=== PATIENT | male | born 1965 | race Caucasian/White ===

== ENCOUNTER 2018-12-11 10:39 | Outpatient (REF) | payer OTHER, SELFPAY ==
[2018-12-13 10:59] LABS: Campylobacter PCR SEE COMMENTS; Salmonella PCR SEE COMMENTS; Shiga Toxin PCR SEE COMMENTS; Shigella/Enteroinvasive Ecoli SEE COMMENTS
== END 2018-12-11 10:59 ==
LOC: NCHCN 10:39
PROVIDERS: PCP Family Medicine; Visit Provider Registered Nurse
DX: R19.7 Diarrhea, unspecified (principal)
CPT/HCPCS: 87505; 83630; 87324

== ENCOUNTER 2019-11-05 08:02 | Outpatient (REF) | payer OTHER, SELFPAY ==
[2019-11-05 22:20] LABS: Anion Gap 10.4 mmol/L (3-11); BUN 14 mg/dL (7-18); CO2 25.6 mmol/L (21.0-32.0); CREATININE 1.06 mg/dL (0.70-1.30); Calcium 9.2 mg/dL (8.5-10.1); Calculated LDL 109 mg/dL (<100); Chloride 103 mmol/L (98-107); Cholesterol 196 mg/dL (<200); Glucose 106 mg/dL (74-106); HDL Cholesterol 38 mg/dL (40-60); Potassium 4.5 mmol/L (3.5-5.1); Sodium 139 mmol/L (136-145); Triglyceride 246 mg/dL (<150)
== END 2019-11-05 08:22 ==
LOC: NCHCN 08:02
PROVIDERS: PCP Family Medicine; Visit Provider Internal Medicine
DX: I10 Essential (primary) hypertension (principal); E88.81 Metabolic syndrome and other insulin resistance; E78.5 Hyperlipidemia, unspecified
CPT/HCPCS: 80048; 80061

== ENCOUNTER 2020-05-04 08:19 | Outpatient (REF) | payer OTHER, SELFPAY ==
[2020-05-04 21:17] LABS: Calculated LDL 109 mg/dL (<100); Cholesterol 206 mg/dL (<200); Glucose 94 mg/dL (74-106); HDL Cholesterol 36 mg/dL (40-60); Triglyceride 307 mg/dL (<150)
[2020-05-04 21:28] LABS: Hemoglobin A1C 5.9 % (3.8-5.6)
== END 2020-05-04 08:39 ==
LOC: NCHCN 08:19
PROVIDERS: PCP Family Medicine; Visit Provider Internal Medicine
DX: R73.01 Impaired fasting glucose (principal); I10 Essential (primary) hypertension; E78.5 Hyperlipidemia, unspecified
CPT/HCPCS: 80061; 82947; 83036

== ENCOUNTER 2020-11-04 07:45 | Outpatient (REF) | payer OTHER, SELFPAY ==
[2020-11-04 14:30] LABS: Hemoglobin A1C 6.2 % (<5.7)
[2020-11-04 14:46] LABS: ALT 54 U/L (16-63); AST 39 U/L (15-37); Alkaline Phosphatase 109 U/L (46-116); Anion Gap 12.7 mmol/L (3-11); BUN 13 mg/dL (7-18); Bilirubin, Total 0.5 mg/dL (0.2-1.0); CO2 24.3 mmol/L (21.0-32.0); CREATININE 1.1 mg/dL (0.70-1.30); Calcium 9.4 mg/dL (8.5-10.1); Calculated LDL 81 mg/dL (<100); Chloride 101 mmol/L (98-107); Cholesterol 143 mg/dL (<200); Glucose 107 mg/dL (74-106); HDL Cholesterol 38 mg/dL (40-60); Potassium 4.3 mmol/L (3.5-5.1); Sodium 138 mmol/L (136-145); Total Protein 7.9 g/dL (6.4-8.2); Triglyceride 122 mg/dL (<150)
== END 2020-11-04 07:46 | disposition home or self-care (01) ==
LOC: NCHCN 07:45
PROVIDERS: PCP Family Medicine; Visit Provider Internal Medicine
DX: I10 Essential (primary) hypertension (principal); R78.5 Finding of other psychotropic drug in blood; R73.01 Impaired fasting glucose
CPT/HCPCS: 80053; 80061; 83036

== ENCOUNTER 2020-11-11 19:13 | Outpatient (REF) | payer OTHER, SELFPAY ==
[2020-11-12 18:54] LABS: PSA, Screening 0.5 ng/mL (0.0-3.5)
== END 2020-11-11 19:14 | disposition home or self-care (01) ==
LOC: NCHCN 19:13
PROVIDERS: PCP Family Medicine; Visit Provider Internal Medicine
DX: Z12.5 Encounter for screening for malignant neoplasm of prostate (principal)
CPT/HCPCS: 84153

== ENCOUNTER 2021-05-03 12:30 | Outpatient (REF) | payer OTHER, SELFPAY ==
[2021-05-03 22:27] LABS: Hemoglobin A1C 6.3 % (<5.7)
[2021-05-03 22:32] LABS: ALT 44 U/L (16-63); AST 39 U/L (15-37); Albumin 3.9 g/dL (3.4-5.0); Alkaline Phosphatase 106 U/L (46-116); Bilirubin, Direct 0.1 mg/dL (0.0-0.2); Bilirubin, Total 0.3 mg/dL (0.2-1.0); Total Protein 7.6 g/dL (6.4-8.2)
[2021-05-05 09:34] LABS: HBs Antibody, Quant <3.1 mIU/mL (See Note); Hepatitis B Surface Ab Negative (See Note)
[2021-05-05 09:45] LABS: Hepatitis B Surface Ag Negative (Negative)
[2021-05-05 10:42] LABS: Hepatitis C Ab w Rflx HCV PCR Negative (Negative)
== END 2021-05-03 12:31 | disposition home or self-care (01) ==
LOC: NCHCN 12:30
PROVIDERS: PCP Family Medicine; Visit Provider Internal Medicine
DX: R73.03 Prediabetes (principal); R74.8 Abnormal levels of other serum enzymes
CPT/HCPCS: 80076; 86706; 86803; 87340; 83036

== ENCOUNTER 2021-11-12 19:03 | Outpatient (REF) | payer OTHER, SELFPAY ==
[2021-11-12 14:45] LABS: Hemoglobin A1C 6.2 % (<5.7)
[2021-11-12 14:48] LABS: ALT 30 U/L (16-63); AST 22 U/L (15-37); Albumin 3.6 g/dL (3.4-5.0); Alkaline Phosphatase 100 U/L (46-116); Anion Gap 11.7 mmol/L (3-11); BUN 20 mg/dL (7-18); Bilirubin, Total 0.3 mg/dL (0.2-1.0); CO2 24.3 mmol/L (21.0-32.0); CREATININE 0.9 mg/dL (0.70-1.30); Calcium 9.3 mg/dL (8.5-10.1); Calculated LDL 70 mg/dL (<100); Chloride 101 mmol/L (98-107); Cholesterol 164 mg/dL (<200); Glucose 91 mg/dL (74-106); HDL Cholesterol 47 mg/dL (40-60); Potassium 4.5 mmol/L (3.5-5.1); Sodium 137 mmol/L (136-145); Total Protein 7.6 g/dL (6.4-8.2); Triglyceride 236 mg/dL (<150)
== END 2021-11-12 19:04 | disposition home or self-care (01) ==
LOC: LBN 19:03
PROVIDERS: PCP Family Medicine; Visit Provider Internal Medicine
DX: E78.5 Hyperlipidemia, unspecified (principal); R73.09 Other abnormal glucose
CPT/HCPCS: 80053; 80061; 83036

== ENCOUNTER 2022-06-20 15:04 | Outpatient (REF) | payer OTHER, SELFPAY ==
[2022-06-20 20:56] LABS: Absolute Eosinophil Count 0.33 10^3/uL (0.0-0.7); HGB 15.7 g/dL (13.5-17.5); MCH 30.1 pg (27.0-33.0); MCHC 33.4 % (32.0-36.0); MCV 90 fL (80-95); RBC 5.21 10^6/uL (4.36-5.78); RDW 13.9 % (11.8-14.1); RDW-SD 46.3 fL
[2022-06-20 21:08] LABS: ESR 30 mm/hr (0-20)
[2022-06-20 21:10] LABS: ALT 29 U/L (16-63); AST 29 U/L (15-37); Alkaline Phosphatase 107 U/L (46-116); Anion Gap 11.1 mmol/L (3-11); BUN 12 mg/dL (7-18); Bilirubin, Total 0.3 mg/dL (0.2-1.0); CO2 25.9 mmol/L (21.0-32.0); Calcium 9.7 mg/dL (8.5-10.1); Chloride 100 mmol/L (98-107); Glucose 96 mg/dL (74-106); Sodium 137 mmol/L (136-145); TSH 1.62 uIU/mL (0.36-3.74); Total Protein 8.2 g/dL (6.4-8.2)
[2022-06-20 21:35] LABS: Absolute Basophil Count 0.22 10^3/uL (0.0-0.2); Absolute Lymphocyte Count 4.36 10^3/uL (1.2-3.4); Absolute Monocyte Count 1.74 10^3/uL (0.1-0.8); Absolute Neutrophil Count 4.25 10^3/uL (1.2-6.7); Atypical Lymphocytes % 1; Diff Comment Manual Differential
[2022-06-20 21:36] LABS: Howell-Jolly Bodies 1+
== END 2022-06-20 15:05 | disposition home or self-care (01) ==
LOC: NCHCN 15:04
PROVIDERS: PCP Family Medicine; Visit Provider Internal Medicine
DX: R50.9 Fever, unspecified (principal); R61 Generalized hyperhidrosis
CPT/HCPCS: 80053; 85652; 84443; 85025; 86140

== ENCOUNTER 2023-12-14 11:07 | Outpatient (REF) | payer BC, SELFPAY ==
[2023-12-14 15:40] LABS: HCT 48.4 % (40.0-50.0); HGB 16.3 g/dL (13.5-17.5); MCH 30.9 pg (27.0-33.0); MCHC 33.7 % (32.0-36.0); MCV 92 fL (80-95); MPV 10.4 fL (8.0-11.0); Platelet Count 437 10^3/uL (130-400); RBC 5.28 10^6/uL (4.36-5.78); RDW 13.9 % (11.8-14.1); RDW-SD 47.2 fL; WBC 9.73 10^3/uL (4.4-10.8)
[2023-12-14 16:03] LABS: ALT 39 U/L (16-63); AST 32 U/L (15-37); Albumin 3.8 g/dL (3.4-5.0); Alkaline Phosphatase 98 U/L (46-116); Anion Gap 10.7 mmol/L (3-11); BUN 13 mg/dL (7-18); Bilirubin, Total 0.8 mg/dL (0.2-1.0); CO2 25.3 mmol/L (21.0-32.0); CREATININE 1.1 mg/dL (0.70-1.30); Calcium 9.6 mg/dL (8.5-10.1); Calculated LDL 75 mg/dL (<100); Chloride 103 mmol/L (98-107); Cholesterol 136 mg/dL (<200); Estimated GFR 76.85 (mL/min/1.73m2); Glucose 108 mg/dL (74-106); HDL Cholesterol 39 mg/dL (40-60); Potassium 4.2 mmol/L (3.5-5.1); Sodium 139 mmol/L (136-145); Total Protein 7.9 g/dL (6.4-8.2); Triglyceride 113 mg/dL (<150)
[2023-12-14 18:02] LABS: Hemoglobin A1C 6.2 % (<5.7)
== END 2023-12-14 11:08 | disposition home or self-care (01) ==
LOC: NCHCN 11:07
PROVIDERS: PCP Family Medicine; Visit Provider Internal Medicine
DX: K76.0 Fatty (change of) liver, not elsewhere classified (principal); Z00.00 Encounter for general adult medical examination without abnormal findings
CPT/HCPCS: 80053; 80061; 85027; 83036

== ENCOUNTER 2025-02-21 12:30 | Outpatient (REF) | payer OTHER, SELFPAY ==
[2025-02-21 14:32] LABS: HGB 15.4 g/dL (13.5-17.5); MCH 31.4 pg (27.0-33.0); MCHC 34.2 % (32.0-36.0); MCV 92 fL (80-95); MPV 9.3 fL (8.0-11.0); Platelet Count 466 10^3/uL (130-400); RDW 14.4 % (11.8-14.1); RDW-SD 48.7 fL; WBC 8.02 10^3/uL (4.4-10.8)
[2025-02-21 14:52] LABS: Hemoglobin A1C 5.8 % (<5.7)
[2025-02-21 14:56] LABS: ALT 37 U/L (16-63); AST 35 U/L (15-37); Albumin 3.9 g/dL (3.4-5.0); Alkaline Phosphatase 101 U/L (46-116); Anion Gap 9.2 mmol/L (3-11); BUN 11 mg/dL (7-18); Bilirubin, Total 0.6 mg/dL (0.2-1.0); CO2 25.8 mmol/L (21.0-32.0); Calcium 8.8 mg/dL (8.5-10.1); Calculated LDL 56 mg/dL (<100); Chloride 104 mmol/L (98-107); Cholesterol 112 mg/dL (<200); Estimated GFR 85.63 (mL/min/1.73m2); Glucose 85 mg/dL (74-106); HDL Cholesterol 41 mg/dL (>or=40); Sodium 139 mmol/L (136-145); Total Protein 7.8 g/dL (6.4-8.2); Triglyceride 75 mg/dL (<150)
== END 2025-02-21 12:31 | disposition home or self-care (01) ==
LOC: NCHCN 12:30
PROVIDERS: PCP Family Medicine; Visit Provider Internal Medicine
DX: Z00.00 Encounter for general adult medical examination without abnormal findings (principal); I10 Essential (primary) hypertension; R73.03 Prediabetes; K76.0 Fatty (change of) liver, not elsewhere classified; E78.5 Hyperlipidemia, unspecified
CPT/HCPCS: 80053; 80061; 85027; 83036

== ENCOUNTER 2025-02-28 17:04 | Outpatient (REF) | payer OTHER, SELFPAY ==
[2025-03-03 10:19] LABS: PSA, Screening 0.4 ng/mL (<=4.5)
== END 2025-02-28 17:05 | disposition home or self-care (01) ==
LOC: NCHCN 17:04
PROVIDERS: PCP Family Medicine; Visit Provider Internal Medicine
DX: Z12.5 Encounter for screening for malignant neoplasm of prostate (principal)
CPT/HCPCS: 84153